=== PATIENT | female | born 1980 | race Caucasian/White ===

== ENCOUNTER 2018-09-19 11:04 | Emergency (ER) | payer OTHER, SELFPAY | END 2018-09-19 11:45 | disposition home or self-care (01) | LOC: MADERS 11:04 | DX: J06.9 Acute upper respiratory infection, unspecified (principal); F17.210 Nicotine dependence, cigarettes, uncomplicated | CPT/HCPCS: 87081; 87430; 99283 ==

== ENCOUNTER 2020-08-24 15:45 | Outpatient (CLI) | payer OTHER ==
[2020-08-24 16:56] LABS: #Basophils 0.1 thou/uL (0.0-0.2); #Eosinphils 0.2 thou/uL (0.0-0.7); #Lymphocytes 3.4 thou/uL (1.20-3.40); #Monocytes 0.6 thou/uL (0.11-0.59); #Neutrophils 6.3 thou/uL (1.40-6.50); %Basophils 1.2 % (0.0-1.0); %Eosinophils 2.1 % (0.0-10.0); %Lymphocytes 31.6 % (21.0-51.0); %Neutrophils 59.1 % (42.0-75.0); ALT (SGPT) 18 U/L (8-55); AST (SGOT) 15 U/L (5-34); Albumin 4.3 g/dL (3.5-5.0); Alkaline Phosphatase 81 U/L (40-110); Anion Gap 14 mmol/L (10-20); BUN (Urea Nitrogen) 8 mg/dL (7.0-18.7); Bilirubin, Total 0.2 mg/dL (0.2-1.2); Calc. Creatinine Clearance 0 mL/min (70-130); Calcium 9.1 mg/dL (7.8-10.44); Carbon Dioxide 21 mmol/L (22-29); Chloride 109 mmol/L (98-107); Globulin 3.1 g/dL (2.4-3.5); Glucose 93 mg/dL (70-105); Hemoglobin 14.4 g/dL (12.0-16.0); Mean Corpuscular HGB CONC 31.3 g/dL (32.0-36.0); Mean Corpuscular Hemoglobin 27.7 pg (27.0-31.0); Mean Corpuscular Volume 88.4 fL (78.0-98.0); Mean Platelet Volume 8.1 fL (7.4-10.4); Platelet Count 330 thou/uL (130-400); Protein, Total 7.4 g/dL (6.0-8.3); RBC Distribution Width 12.9 % (11.5-14.5); Sodium 140 mmol/L (136-145); Troponin I Less than 0.010 ng/mL (< 0.028); White Blood Cell (WBC) Count 10.6 thou/uL (4.8-10.8)
[2020-08-24 17:27] LABS: Thyroid Stimulating Hormone 2.5173 uIU/mL (0.35-4.94)
[2020-08-24 22:11] LABS: Free T4 (Free Thyroxine) 0.83 ng/dL (0.70-1.48)
== END 2020-08-24 15:46 | disposition home or self-care (01) ==
LOC: MADEKG 15:45
PROVIDERS: ATTEND Family Medicine
DX: R07.89 Other chest pain (principal)
CPT/HCPCS: 36415; 80053; 82553; 84439; 84443; 84484; 85025

== ENCOUNTER 2021-08-25 01:08 | Emergency (ER) | payer OTHER ==
[2021-08-25] MEDS ORDERED: Proparacaine 0.5% Opth 15 ML BOT ONE (01:21)
[2021-08-25] MEDS ORDERED: Fluorescein Opthalmic Strip ONE (01:21)
[2021-08-25] MEDS ORDERED: Erythromycin Base 0.5% Ophth Oint 3.5 gm Tube ONE (01:48)
== END 2021-08-25 02:01 | disposition home or self-care (01) ==
LOC: MADERS 01:08
DX: S05.01XA Injury of conjunctiva and corneal abrasion without foreign body, right eye, initial encounter (principal); I10 Essential (primary) hypertension; D64.9 Anemia, unspecified; F17.210 Nicotine dependence, cigarettes, uncomplicated; X58.XXXA Exposure to other specified factors, initial encounter
CPT/HCPCS: 99283